=== PATIENT | male | born 1985 | race Caucasian/White ===

== ENCOUNTER 2016-08-22 17:06 | Emergency (ER) | payer SELFPAY ==
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
== END 2016-08-22 18:45 | disposition home or self-care (01) ==
LOC: ER 17:06
DX: S00.93XA Contusion of unspecified part of head, initial encounter (principal); F41.9 Anxiety disorder, unspecified; F32.9 Major depressive disorder, single episode, unspecified; Y04.2XXA Assault by strike against or bumped into by another person, initial encounter; Y92.009 Unspecified place in unspecified non-institutional (private) residence as the place of occurrence of the external cause

== ENCOUNTER 2016-08-24 08:29 | Inpatient (IN) | payer SELFPAY ==
[~2016-08-24] VITALS: Ht 165.1 cm; Wt 79.2 kg
--- NOTE | 2016-08-24 14:23 | HP ---
ADMIT: 08/24/2016 RM/LOC: 520 [facility] MR#: [id number] [address] [place], [place] [address] AR[address] N [address] [place] [address] History and Physical SEX: M AGE: 31 : 1985 DATE OF SERVICE: CHIEF COMPLAINT: Anxiety, suicidal ideation. HISTORY OF PRESENT ILLNESS: This is a 31-year-old gentleman of descent, who has a history of anxiety, multiple ER visits in the last few years related to such. He presented with suicidal ideations of wanting to hang himself. He reports he also took multiple doses of his paroxetine at home. He was found to have CK level that was elevated, which was fear this was the rhabdo brought on by his overdose of this medicine. He was given some Ativan down in the emergency room. At the current time, he is quite sleepy and does not really arouse enough to have a conversation. We attempted to use the Language Line because of his non [place]-speaking baseline and this was unsuccessful, for history really not very well obtainable. PAST MEDICAL HISTORY: Significant for alcohol abuse and anxiety. FAMILY HISTORY: Unobtainable. SOCIAL HISTORY: Otherwise, unobtainable. REVIEW OF SYSTEMS: Other complete review of systems attempted to be obtained, but the patient would open his eyes and then fall asleep. For this was attempted completely, but unobtainable. PHYSICAL EXAMINATION: VITAL SIGNS: Temp 99.0, pulse 99 to 111, blood pressure 140/90, oxygen saturation 90% on room air. GENERAL: This is a well-appearing 31-year-old gentleman. He appears in no apparent distress. He is somnolent, sleeping in his bed. He will rouse slightly with physical and verbal stimulation, but he opens his eyes and then goes right back to sleep. Did not have any verbal response with me. HEENT: Pupils are equal, round, and reactive to light and accommodation. Extraocular muscles were intact. Throat is clear. NECK: Supple. HEART: Regular rate and rhythm. Little tachy. LUNGS: Clear. Abdomen: He elicited no tenderness. Normal bowel sounds. EXTREMITIES: Lower extremities have no edema. He can move all extremities equally bilaterally. NEURO: Cranial nerves could not be tested. LABORATORY AND X-RAY DATA: AST, ALT elevated. Alcohol level is 225. CK was 5700. ADMIT: 08/24/2016 RM/LOC: 520 [facility] MR#: [id number] [address] [address] [address] [place] [address] History and Physical SEX: M AGE: 31 : 1985 ASSESSMENT: 1. Anxiety. 2. Suicidal ideation. 3. Paroxetine overdose. 4. Rhabdomyolysis. 5. Elevated liver tests. 6. Alcohol intoxication. PLAN: He will be admitted. We will have Psych consult. He is on Emergency Protective Custody hold. We will do IV, banana bag as well as CIWA protocol. If he wakes up a little bit, he can have a regular diet. We will watch him closely and watch his electrolytes closely as well. Sea Manley MD/ esthela JOB #: [id number] CC: Sea Manley, Attending Physician Sea Manley, Family Physician
--- NOTE | 2016-08-26 13:16 | ER ---
ADMIT: 08/24/2016 RM/LOC: 520 [facility] MR#: [id number] [id number] [place], [place] [address] AR[address] AD[address] [place] [address] Emergency Room Report SEX: M AGE: 31 : 1985 DATE: 08/24/2016 The patient is a 31-year-old male with history of anxiety and depression, came to the ER with chief complaint of feeling anxious. The patient states he is on paroxetine and last night, in stead of 1, until the morning, he took 7-8 of the paroxetine, which did not help him go to sleep. The patient states he has suicidal ideation. Also, he plans on killing himself by hanging himself with a sweater. The patient states he has previous suicidal attempts. The patient states last night, he has consumed some alcohol but denies any co-ingestion of other medications. The patient, in the ER, was mildly tachycardic, afebrile, blood pressure was within normal limits. On physical exam, the patient was mildly agitated, alert and oriented to person, place, and time. Head and neck; pupils are 3 mm, reactive to light bilaterally. Neck is soft. Negative meningismus signs. Chest is clear bilaterally. Normal S1, S2 without any murmurs. Abdomen is soft. Extremities are nontender and nonedematous. The rest of the physical exam is noncontributory. The patient's EKG was sinus tachycardia with normal QT interval. The rest of the lab was significant for elevated CK to 53,100, questionable for rhabdomyolysis for multiple causes even the overdose of SSRI. The patient received 2 L of fluid, and repeat CK was elevated. The patient was admitted for further followups and treatments for rhabdomyolysis, anxiety disorder, depression. The patient is already on hold by [facility]. Elmo Tsang MD/ esthela JOB #: [id number] CC: Sea Manley MD, Attending Physician Sea Manley MD, Family Physician
[2016-08-26] MEDS ORDERED: NEURONTIN DPS300 MG PO (13:24)
[2016-08-26] MEDS ORDERED: TENORMIN-DPS25 MG PO (13:25)
[2016-08-26] MEDS ORDERED: PEPCID DPS20 MG PO (13:25)
[2016-08-26] MEDS ORDERED: INVEGA6 MG PO (13:25)
[2016-08-26] MEDS ORDERED: PAXIL40 MG PO (13:25)
[2016-08-26] MEDS ORDERED: CATAPRES-DPS0.1 MG PO (13:25)
[2016-08-26] MEDS ORDERED: MARYS PO (13:26)
[2016-08-26] MEDS ORDERED: LIBRIUM-DPS25 MG PO (13:26)
--- NOTE | 2016-08-26 14:33 | NUR ---
Received SAD person referral. Pt was EPC'd to [facility].
--- NOTE | 2016-08-29 07:49 | DS ---
ADMIT: 08/24/2016 RM/LOC: 520 [facility] MR#: [id number] [address] [place], [place] [address] [address] [place] [address] General Discharge Summary SEX: M AGE: 31 : 1985 ADMISSION DATE: 08/24/2016 DISCHARGE DATE: 08/26/2016 FINAL DIAGNOSES: 1. Suicide ideation. 2. Anxiety. 3. Paroxetine overdose. 4. Rhabdomyolysis. 5. Elevated liver tests secondary to alcohol ingestion and alcohol intoxication with alcohol abuse. REASON FOR ADMISSION: A 31-year-old, [facility] descent gentleman, presented with suicide ideations of hanging himself. He had been very anxious at home. He was taking his paroxetine as needed for anxiety. He is also drinking alcohol. He presented to the emergency room, had CK levels above 5000. See H and P further details. HOSPITAL COURSE: The patient was admitted, placed on the CIWA protocol, monitored closely with a sitter for suicidal ideation. His CK trended down as did his liver enzymes. We started him back on most of his home medications for his anxiety. He had some lesions in his mouth, which looked like some large canker sores, which could have been from recent vomiting. He got some Desk's Magic mouthwash for that. His potassium is a little low and some of this was supplemented orally. He had a lot of family visitors and this increased his anxiety, so his family visitors were limited. Blood pressure remained high, so his atenolol was increased, on the , he was doing much better, so he was set up to be transferred to [facility] by the [facility] because of EPC was put in place by the [facility]. DISCHARGE MEDICATIONS: 1. Clonidine 0.1 mg at bedtime. 2. Invega 6 mg daily. 3. Librium 25 mg at bedtime. 4. Neurontin 300 mg t.i.d. 5. Germaine's Magic mouthwash q.i.d. until mouth is healed. 6. Paxil 40 mg daily. 7. Pepcid 20 mg at bedtime. 8. Atenolol 100 mg daily. DISCHARGE INSTRUCTIONS: Flu vaccine if he wishes. We will have him on a regular diet. He is a full code. Sea Manley MD/ jesus albertol JOB #: [id number] CC: Sea Manley MD, Attending Physician ADMIT: 08/24/2016 RM/LOC: 520 [facility] MR#: [id number] [address] [address] [facility] [address] [place] [address] General Discharge Summary SEX: M AGE: 31 : 1985 Sea Manley MD, Family Physician
== END 2016-08-26 10:22 | DRG 918 ==
LOC: ER 08:29 → 5MS 11:50
PROVIDERS: ADMIT Internal Medicine
PROC: HZ2ZZZZ Detoxification Services for Substance Abuse Treatment (ICD-10-PCS; principal; 2016-08-24)
PROC: 3E0234Z Introduction of Serum, Toxoid and Vaccine into Muscle, Percutaneous Approach (ICD-10-PCS; 2016-08-26)
DX: T43.222A Poisoning by selective serotonin reuptake inhibitors, intentional self-harm, initial encounter (principal); M62.82 Rhabdomyolysis; R45.851 Suicidal ideations; T51.0X2A Toxic effect of ethanol, intentional self-harm, initial encounter; E87.6 Hypokalemia; F41.9 Anxiety disorder, unspecified; F32.9 Major depressive disorder, single episode, unspecified; F10.129 Alcohol abuse with intoxication, unspecified; Y90.7 Blood alcohol level of 200-239 mg/100 ml; Z23 Encounter for immunization

== ENCOUNTER 2016-11-08 19:30 | Emergency (ER) | payer SELFPAY ==
[~2016-11-08 19:30] MED LIST: CATAPRES-DPS0.1 MG PO; INVEGA6 MG PO; LIBRIUM-DPS25 MG PO; MARYS PO; NEURONTIN DPS300 MG PO; PAXIL40 MG PO; PEPCID DPS20 MG PO; TENORMIN-DPS25 MG PO
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
--- NOTE | 2016-12-08 16:41 | ER ---
ADMIT: 11/08/2016 RM/LOC: ER [facility] MR#: [id number] [address] [address] [address] [place] [address] Emergency Room Report SEX: M AGE: 31 : 1985 DATE: 11/08/2016 ADDENDUM: This patient was initially seen by ZULEMA Gonzalez. He had a pain in his left shoulder. X-ray was negative. DIAGNOSIS: Left shoulder strain. Please see Louisa Stewart's dictation as well. ZULEMA Wilkerson / Adal Eugene MD / esthela JOB #: [id number] CC: Adal Eugene MD, Attending Physician Adal Blanchard MD, Family Physician
== END 2016-11-08 22:52 | disposition home or self-care (01) ==
LOC: ER 19:30
DX: S46.912A Strain of unspecified muscle, fascia and tendon at shoulder and upper arm level, left arm, initial encounter (principal); F41.9 Anxiety disorder, unspecified; F32.9 Major depressive disorder, single episode, unspecified; Z79.899 Other long term (current) drug therapy; X50.9XXA Other and unspecified overexertion or strenuous movements or postures, initial encounter; Y92.69 Other specified industrial and construction area as the place of occurrence of the external cause; Y99.0 Civilian activity done for income or pay